=== PATIENT | female | born 1970 | race Caucasian/White ===

== ENCOUNTER 2018-01-02 07:26 | Day surgery (SDC) | payer OTHER ==
--- NOTE | 2017-12-29 15:59 | RAD REPORT ---
EXAM DESCRIPTION: RAD - Chest Pa And Lat (2 Views) - 12/29/2017 3:55 pm CLINICAL HISTORY: Abdominal pain COMPARISON: None. FINDINGS: The lungs are clear. The heart is normal in size. No displaced fractures. IMPRESSION: No acute or concerning finding suspected.
[2017-12-29 16:39] LABS: Absolute Lymphocytes (CBC) 1.8 K/uL (0.7-4.9); Absolute Monocytes 0.6 K/uL (0.1-1.3); Absolute Neutrophil 3.9 K/uL (1.8-8.0); Basophils % 0.7 % (0-1.3); Eosinophils % 4.4 % (0-4.4); Hematocrit 39.6 % (36.0-45.0); Lymphocytes % 27.9 % (15.3-44.8); MCV 90.9 fL (80-100); MPV 11.4 fL (7.6-11.3); Monocytes % 8.6 % (3.3-12.3); RBC Red Blood Cell Count 4.36 M/uL (3.86-4.86)
[2017-12-29 17:09] LABS: Potassium 3.9 mEq/L (3.6-5.0)
[2017-12-29 17:29] LABS: Bilirubin Direct 0.2 mg/dL (0-0.2); Bilirubin Total 0.8 mg/dL (0.3-1.2); Protein, Total 6.2 g/dL (6.0-8.3)
--- NOTE | 2017-12-30 07:21 | EKG ---
Test Date: 2017-12-29 Test Time: 15:39:57 Straddle Bug Operator: SKG MEASUREMENT RESULTS: Intervals: Rate: 61 WA: 152 QRSD: 100 QT: 426 QTc: 428 [place]aux: P: 50 WA: 152 QRS: 7 T: 31 INTERPRETIVE STATEMENTS: Normal sinus rhythm Normal ECG No previous ECG available for comparison Electronically Signed On 12-30-17 07:19:47 CDT by Peter Figueroa
[2018-01-02] MEDS ORDERED: Ringers Lactate 1,000 ML IV ONE ×2 (07:51→10:30)
[2018-01-02] MEDS ORDERED: MIDAZOLAM HCL 2 MG/2 ML INJ ONE (08:23)
[2018-01-02] MEDS ORDERED: LIDOCAINE 2% MPF 5 ML VIAL ONE (08:23)
[2018-01-02] MEDS ORDERED: PROPOFOL 200 MG/20 ML VIAL IV ONE (08:23)
[2018-01-02] MEDS ORDERED: GLYCOPYRROLATE 0.2 MG/ML SYR ONE (08:23)
[2018-01-02] MEDS ORDERED: FENTANYL CITR 250 MCG/5 ML ONE (08:23)
[2018-01-02] MEDS ORDERED: CIPROFLOXACIN 400mg IV 400 MG/200 ML BAG IV ONE (08:53)
--- NOTE | 2018-01-02 10:15 | P.BOP ---
Preoperative diagnosis: acute cholecystitis, symptomatic cholelithiasis Postoperative diagnosis: same Primary procedure: 1. Laparoscopic cholecystectomy Secondary procedure: 2. Open umbilical hernia repair Streetcar Operator: Lia Guajardo (Katerine) Estimated blood loss: <10cc Specimen: gb Findings: as above Anesthesia: General Complications: None Drain(s): Other
[2018-01-02] MEDS ORDERED: ROCURONIUM 50 MG/5 ML VIAL IV ONE (10:19)
[2018-01-02] MEDS: MEPERIDINE HCL 25 MG/0.5 ML ONE ×4 (10:44→11:02)
[2018-01-02] MEDS ORDERED: CODEINE 30MG/APAP 300MG TAB ONE (12:07)
--- NOTE | 2018-01-02 20:38 | OP ---
Date of Procedure: 01/02/2018 Surgeon: Claudio Justice MD Aircraft Structural Repair Mechanic: KASSANDRA Levine. Preoperative Diagnosis: Acute cholecystitis and symptomatic cholelithiasis. Postoperative Diagnosis: Acute cholecystitis and symptomatic cholelithiasis. Procedures: 1.Laparoscopic cholecystectomy. 2.Open repair of umbilical hernia. Estimated Blood Loss: Less than 10 cc. Anesthesia: General plus local. Indications: This a case of a 47-year-old patient, who comes to us with above diagnosis. I fully ex plained the benefits, alternatives, and risks of laparoscopic, possible open cholecystectomy which in clude, but not limited to infection, bleeding, damage to adjacent structures, anesthesia complication , choledocholithiasis, bile leak, pancreatitis, [place], and even . She also understands this may no t relieve the symptoms. She might need more than one surgical intervention. She understood and sign ed a consent. Description Of Procedure: The patient was brought to the operating room, placed in supine position. Anesthesia was done without complication. Abdominal area was prepped and draped in a sterile fashio n. Marcaine 0.5% injected for local anesthetic, followed by sharp incision of the skin in the infrau mbilical region. Incision was carried down to fascia, which was opened under direct vision. Periton eum was encountered, opened under direct vision. Vicryl #1 placed inside the fascia. Courtney trocar was carefully introduced. No bleeding was obtained. After that, I placed 3 more trocars, 5 mm each one of them, 1 epigastric area, 2 in the right upper quadrant under direct visualization. A grasper was placed in the fundus of the gallbladder, another grasper in the infundibulum, retracted the gallb ladder in the inferolateral fashion exposing the triangle of Calot. Cystic duct and cystic artery we re clearly isolated free circumferentially, and a connection between those and the gallbladder were c learly identified. I proceeded to ligate those by using at least 3 clips proximal, 1 clip distal, li gatkandace in middle. Same was done with the cystic artery. A small branch also of the cystic artery wa s also ligated making sure that hepatic arteries were protected at all times and also protected the c ommon bile duct. The gallbladder was removed from liver using Bovie cauterizer and removed from abdo katerina cavity using an EndoCatch through the umbilical incision. The area was irrigated. Suction was done. Clips were intact. No bile leak. No bleeding. Gallbladder fossa with no bleeding. At that moment, I proceeded to remove the trocars under direct vision. Deflated pneumoperitoneum. The disha ent has an umbilical hernia. At this moment, we proceeded to carefully dissect the umbilical hernia, umbilical hernia to our incision to have one repair. The patient has incarcerated fatty tissue in that area that was carefully removed. The fascial edges were cleaned and then we proceeded to close the area with multiple #1 Vicryl in a [id number] fashion. The subcutaneous tissue was closed with 3-0 chromic and then skin in a subcuticular fashion with 3-0 chromic. Sponge count and instrument counts were correct. The patient tolerated the procedure well. [facility]. Disposition: Home. Activity: As tolerated. No heavy lifting. Followup: Follow up in my office in 1 week. Call for appointment [phone]. Keep area dry for 48 ho urs, then may shower. Keep Steri-Strips intact. Medications: Include Cipro 500 p.o. q.12 and Tylenol No. 3 q.4 hours p.r.n. pain. SELAM/FORREST Voice ID: [id number] Report ID: [id number]
== END 2018-01-02 13:25 | disposition home or self-care (01) ==
LOC: OR 07:26
PROVIDERS: ATTEND Surgery
PROC: 0WQF0ZZ Repair Abdominal Wall, Open Approach (ICD-10-PCS; 2018-01-02)
PROC: 0FT44ZZ Resection of Gallbladder, Percutaneous Endoscopic Approach (ICD-10-PCS; principal; 2018-01-02 08:30)
DX: K80.12 Calculus of gallbladder with acute and chronic cholecystitis without obstruction (principal); K42.9 Umbilical hernia without obstruction or gangrene; Z88.0 Allergy status to penicillin; Z88.2 Allergy status to sulfonamides; Z82.49 Family history of ischemic heart disease and other diseases of the circulatory system
CPT/HCPCS: 36415; 71046; 80048; 80076; 81025; 82150; 83690; 85025; 88304; 93005; J0744; J2175; J2250